=== PATIENT | male | born 2000 | race Hispanic/Latino ===

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

== ENCOUNTER 2022-09-20 12:27 | Emergency (ER) | payer OTHER ==
--- OUTSIDE RECORDS SUMMARY | 2022-09-20 12:31 | XMS REPORT | Continuity of Care Document ---
:2000 Author Organization [facility] t Address [address] [place] [address] Dr. Reza. [address] [place] [address] Care Team Providers Name Role Phone Elda Gabriel MD Attending Clinician MI LEE Attending Clinician Unavailable MI LEE Attending Clinician Unavailable 1, [facility] Attending Clinician Unavailable Mi Lee MD Attending Clinician Tanya Newby MD Attending Clinician [phone] Doctor Unassigned, [place] Attending Clinician Unavailable Only, [facility] Test Attending Clinician Unavailable Isaac Singer Attending Clinician ISAAC SALINAS Attending Clinician Unavailable Payers Payer Name Policy Type Policy Number Effective Date Expiration Date [facility] [id number] [address] [facility] MEDICAID 00:00:00 Problems Condition Condition Condition Status Onset Resolution Last Treating Co mments Source Name Details Category Date Date Treatment Clinician Date No known No known Disease Unive rs active active ity of problems problems [facility] Allergies, Adverse Reactions, Alerts Allergy Allergy Status Severity Reaction(s) Onset Inactive Treating Comm ents Source Name Type Date Date Clinician NO KNOWN Drug Active Univers ALLERGIE Class ity of S [facility] Social History Social Habit Start Date Stop Date Quantity Comments Source Exposure to Not sure [facility] SARS-CoV-2 (event) Medica l Branch Sex Assigned At [birth year] [place] [facility] 00:00:00 00:00:00 Smoking Status Start Date Stop Date Source Tobacco smoking consumption unknown [facility] Medications Ordered Filled Start Stop Current Ordering Indication Dosage Frequency Signature Comments Components Source Medication Medication Date Date Medication? Clinician (SIG) Name Name ibuprofen 800mg 800 mg, Uni vers (IBU) 10-05 Oral, ity of tablet 800 23:00: 22:24 ONCE, 1 [place] mg 00 :00 dose, [facility] 10/05/20 at Branch 1700, NAZANIN acetaminoph No 1000mg 1,000 mg, Univers en 10-05 Oral, ity of (TYLENOL) 23:00: 22:24 ONCE, 1 [place] :00 dose, [facility] 1,000 mg 10/05/[address] [place] [facility] h 1700, Routine cyclobenzap Yes [id number] 5mg Take 1 Univers rine 5 mg 1-14 tablet by ity o f tablet 00:00: mouth 3 [place] 00 (three) Medical times Branch daily as needed for Muscle Spasms. ibuprofen Yes [id number] 600mg Take 1 U nivers 600 mg 1-14 tablet by ity of tablet 00:00: mouth [place] 00 every 6 Medical (six) Branch hours as needed for Pain (scale 4-6). cyclobenzap Yes [id number] 5mg Take 1 Univers rine 5 mg 1-14 tablet by ity o f tablet 00:00: mouth 3 [place] 00 (three) Medical times Branch daily as needed for Muscle Spasms. ibuprofen Yes [id number] 600mg Take 1 U nivers 600 mg 1-14 tablet by ity of tablet 00:00: mouth [place] 00 every 6 Medical (six) Branch hours as needed for Pain (scale 4-6). cyclobenzap Yes [id number] 5mg Take 1 Univers rine 5 mg 1-14 tablet by ity o f tablet 00:00: mouth 3 [place] 00 (three) Medical times Branch daily as needed for Muscle Spasms. ibuprofen 2020- Yes [id number] 600mg Take 1 U nivers 600 mg 1-14 tablet by ity of tablet 00:00: mouth [place] 00 every 6 Medical (six) Branch hours as needed for Pain (scale 4-6). cyclobenzap Yes [id number] 5mg Take 1 Univers rine 5 mg 1-14 tablet by ity o f tablet 00:00: mouth 3 [place] 00 (three) Medical times Branch daily as needed for Muscle Spasms. ibuprofen 2020-0 Yes [id number] 600mg Take 1 U nivers 600 mg 1-14 tablet by ity of tablet 00:00: mouth [place] 00 every 6 Medical (six) Branch hours as needed for Pain (scale 4-6). cyclobenzap 2020-0 Yes [id number] 5mg Take 1 Univers rine 5 mg 1-14 tablet by ity o f tablet 00:00: mouth 3 [place] 00 (three) Medical times Branch daily as needed for Muscle Spasms. ibuprofen 2020-0 Yes [id number] 600mg Take 1 U nivers 600 mg 1-14 tablet by ity of tablet 00:00: mouth [place] 00 every 6 Medical (six) Branch hours as needed for Pain (scale 4-6). cyclobenzap 2020-0 Yes [id number] 5mg Take 1 Univers rine 5 mg 1-14 tablet by ity o f tablet 00:00: mouth 3 00 (three) Medical times Branch daily as needed for Muscle Spasms. ibuprofen 2020-0 Yes [id number] 600mg Take 1 U nivers 600 mg 1-14 tablet by ity of tablet 00:00: mouth [place] 00 every 6 Medical (six) Branch hours as needed for Pain (scale 4-6). cyclobenzap 2020-0 Yes [id number] 5mg Take 1 Univers rine 5 mg 1-14 tablet by ity o f tablet 00:00: mouth 3 00 (three) Medical times Branch daily as needed for Muscle Spasms. ibuprofen 2020-0 Yes [id number] 600mg Take 1 U nivers 600 mg 1-14 tablet by ity of tablet 00:00: mouth [place] 00 every 6 Medical (six) Branch hours as needed for Pain (scale 4-6). cyclobenzap 1-0 Yes [id number] 5mg Take 1 Univers rine 5 mg 1-14 tablet by ity o f tablet 00:00: mouth 3 [place] 00 (three) Medical times Branch daily as needed for Muscle Spasms. ibuprofen 2020-0 Yes [id number] 600mg Take 1 U nivers 600 mg 1-14 tablet by ity of tablet 00:00: mouth [place] 00 every 6 Medical (six) Branch hours as needed for Pain (scale 4-6). cyclobenzap Yes [id number] 5mg Take 1 Univers rine 5 mg 1-14 tablet by ity o f tablet 00:00: mouth 3 [place] 00 (three) Medical times Branch daily as needed for Muscle Spasms. ibuprofen Yes [id number] 600mg Take 1 U nivers 600 mg 1-14 tablet by ity of tablet 00:00: mouth [place] 00 every 6 Medical (six) Branch hours as needed for Pain (scale 4-6). cyclobenzap Yes [id number] 5mg Take 1 Univers rine 5 mg 1-14 tablet by ity o f tablet 00:00: mouth 3 [place] 00 (three) Medical times Branch daily as needed for Muscle Spasms. ibuprofen Yes [id number] 600mg Take 1 U nivers 600 mg 1-14 tablet by ity of tablet 00:00: mouth [place] 00 every 6 Medical (six) Branch hours as needed for Pain (scale 4-6). Vital Signs Vital Name Observation Time Observation Value Comments Source Heart rate 2020-10-05 21:03:00 97 /min [facility] Body temperature 2020-10-05 21:03:00 36.72 Daphne [facility] Respiratory rate 2020-10-05 21:03:00 20 /min [facility] Body height 2020-10-05 21:03:00 175.3 cm [facility] Body weight 2020-10-05 21:03:00 48.535 kg [facility] BMI 2020-10-05 21:03:00 15.80 kg/m2 [facility] Systolic blood 2020-10-05 21:03:00 142 mm[Hg] [facility] sity of pressure [facility] Diastolic blood 2020-10-05 21:03:00 82 mm[Hg] [facility] Procedures Procedure Date / Time Performing Clinician Source Performed SLEEP LAB RESULTS 2021-02-02 05:01:00 Tanya Newby [facility] REFERRAL- REQUEST/RESPONSE 2021-01-25 05:01:00 Doctor Unassigned , [facility] [place] [facility] SLEEP STUDY DATA REPORT 2021-01-05 05:01:00 [facility] [place] [facility] PATIENT FINANCIAL 2020-12-11 20:22:35 [facility] POLICY [place] [facility] NO SHOW OR MISSED 2020-12-11 20:22:13 Doctor Edouard, [facility] APPOINTMENT POLICY [place] [facility] h ACKNOWLEDGEMENT NOTICE OF PRIVACY 2020-12-11 20:21:55 Doctor Unassigned, [facility] PRACTICES [place] [facility] CONSENT/REFUSAL FOR 2020-12-11 20:21:29 Doctor Unassmalorie, Unive [facility] DIAGNOSIS AND TREATMENT [place] [facility] ASSIGNMENT OF BENEFITS 2020-12-11 20:21:12 Doctor Unassigned, Un [facility] [place] [facility] Encounters Start End Encounter Admission Attending Care Care Encounter Source Date/Time Date/Time Type Type Clinicians Facility Department ID 2021-06-21 2021-06-21 Telephone Nery [place]apaco [facility] 6410 1.2.840.114 [id number] [place] 00:00:00 00:00:[address] [id number] [facility] [id number] 2021-02-02 2021-02-02 Outpatient R MI LEE [facility] [id number] [facility] 19:30:00 19:30:00 MI LEE [facility] 2021-02-02 2021-02-02 [employer] Executive 1, [facility] Sleep Lab Bed [facility] 1. 2.840.114 [id number] [facility] 13:18:43 15:48:43 Visit Mi Lee [id number]. 10 ity of [place] [id number] [facility] [id number] [facility] nadia 193 Branch 2021-02-02 2021-02-02 Cesilia Newby [facility] 1.2.840.114 [id number] [facility] 00:00:00 00:00:00 Only Tanya PRIMARY [id number] it y of [facility] [id number] [facility] as [facility] [id number] dical 152 Branch 2021-01-31 2021-01-31 Outpatient R [facility] [id number] Univers 14:30:00 14:30:00 ity of [facility] 2021-01-25 2021-01-25 Orders Doctor SIRNIVAS 1.2.840.114 [id number] Univers 00:00:00 00:00:00 Only Unassigned, MARLON [id number] ity of [place] [facility] [id number] [place] as [id number] [address] 2021-01-05 2021-01-05 Outpatient R TAMRA, STRAHIL [facility] [id number] Univers 19:30:00 19:30:00 MAAMENASMOON, STRAHIL ity [facility] 2021-01-05 2021-01-05 [employer] 1, [facility] Sleep Lab Bed [facility] 1. 2.840.114 [id number] Univers 13:50:03 16:20:03 Visit Mi Lee [id number]. 10 ity [facility] [id number] [facility] [id number] [facility] [address] [place] 2021-01-05 2021-01-05 Orders Doctor SRINIVAS 1.2.840.114 [id number] Univers 00:00:00 00:00:00 Only Unassigned, MARLON [id number] ity of [place] [facility] [id number] [place] as [id number] [address] 2020-12-16 2020-12-16 Outpatient R TAMRA, STRAHIL [facility] [id number] Univers 19:30:00 19:30:00 MAAMENASOV, STRAHIL ity [facility] 2020-12-13 2020-12-13 Outpatient R TAMRA STRAHIL [facility] [id number] Univers 19:30:00 19:30:00 MAAMENASOV, STRAHIL ity [facility] 2020-12-11 2020-12-11 Laboratory Only, Adc Test [facility] 1.2.840. 114 [id number] Univers 15:22:29 15:37:29 Only Mi Lee [place] 350.1.13. 10 ity of [place] [id number] [facility] [id number] [facility] 353 Branch 2020-12-11 2020-12-11 Outpatient R MI LEE [facility] [id number] Univers 15:30:00 15:30:[address] [facility] [place] 2020-12-11 2020-12-11 Orders Doctor SRINIVAS 1.2.840.114 [id number] Univers 00:00:00 00:00:00 Only Unassigned, MARLON [id number] ity of [place] [facility] [id number] Vaibhav as [id number] [facility] 009 Branch 2020-12-11 2020-12-11 Letter Doctor SRINIVAS 1.2.840.114 [id number] Univers 00:00:00 00:00:00 (Out) Unassigned, MARLON [id number] ity of [place] [facility] [id number] Vaibhav as [id number] [facility] 044 Branch 2020-10-05 2020-10-05 Emergency [facility] 1.2.840.114 [id number] Univers 15:10:00 17:01:00 Isaac Patiño [id number] ity of [place] [id number] [facility] [id number] [facility] 084 Branch 2020-10-05 2020-10-05 Emergency [facility] ERT [id number] Univers 15:10:00 15:10:00 ISAAC ity [facility] Results This patient has no known results.
[2022-09-20] MEDS ORDERED: LIDOCAINE 1% MPF 5 ML VIAL ONE (14:19)
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
[2022-09-20 16:09] VITALS: BP 156/95; TEMP 98.1; O2SAT 100
== END 2022-09-20 16:03 | disposition home or self-care (01) ==
LOC: ER 12:27
PROC: 0JQH0ZZ Repair Left Lower Arm Subcutaneous Tissue and Fascia, Open Approach (ICD-10-PCS; principal; 2022-09-20)
DX: S51.812A Laceration without foreign body of left forearm, initial encounter (principal)
CPT/HCPCS: 99281; 12001; J2001

== ENCOUNTER 2023-03-12 08:11 | Emergency (ER) | payer OTHER ==
--- OUTSIDE RECORDS SUMMARY | 2023-03-12 08:14 | XMS REPORT | Continuity of Care Document ---
:2000 Author Organization [facility] t Address [address] [facility] [address] [place] [address] Care Team Providers Name Role Phone Elda Gabriel MD Attending Clinician MI LEE Attending Clinician Unavailable MI LEE Attending Clinician Unavailable 1, [facility] Attending Clinician Unavailable Mi Lee MD Attending Clinician Tanya Newby MD Attending Clinician Doctor Unassigned, [place] Attending Clinician Unavailable Only, [facility] Test Attending Clinician Unavailable Isaac Singer Attending Clinician ISAAC SALINAS Attending Clinician Unavailable Payers Payer Name Policy Type Policy Number Effective Date Expiration Date Formerly [facility], [facility] [id number] 2014 [facility] MEDICAID 00:00:00 Problems Condition Condition Condition Status Onset Resolution Last Treating Co mments Source Name Details Category Date Date Treatment Clinician Date No known No known Disease Unive rs active active ity of problems problems [facility] Allergies, Adverse Reactions, Alerts Allergy Allergy Status Severity Reaction(s) Onset Inactive Treating Comm ents Source Name Type Date Date Clinician NO KNOWN Drug Active Univers ALLERGIE Class ity of S [facility] Social History Social Habit Start Date Stop Date Quantity Comments Source Exposure to Not sure [facility] SARS-CoV-2 (event) Medica l Branch Sex Assigned At [birth year] [facility] 00:00:00 00:00:00 Smoking Status Start Date Stop Date Source Tobacco smoking consumption unknown [facility] Medications Ordered Filled Start Stop Current Ordering Indication Dosage Frequency Signature Comments Components Source Medication Medication Date Date Medication? Clinician (SIG) Name Name ibuprofen 800mg 800 mg, Uni vers (IBU) 10-05 Oral, ity of tablet 800 23:00: 22:24 ONCE, 1 [place] as mg 00 :00 dose, [facility] Medical 10/05/20 at Branch 1700, NAZANIN acetaminoph No 1000mg 1,000 mg, Univers en 10-05 Oral, ity of (TYLENOL) 23:00: 22:24 ONCE, [place]00 dose, [facility] 1,000 mg 10/05/20 at [facility] h 1700, Routine cyclobenzap Yes [id number] 5mg Take 1 Univers rine 5 mg 1-14 tablet by ity o f tablet 00:00: mouth 3 [place] 00 (three) Medical times Branch daily as needed for Muscle Spasms. ibuprofen Yes [id number] 600mg Take 1 U nivers 600 mg 1-14 tablet by ity of tablet 00:00: mouth [place] 00 every 6 Medical (six) Branch hours as needed for Pain (scale 4-6). cyclobenzap Yes [id number] 5mg Take 1 Univers rine 5 mg 1-14 tablet by ity o f tablet 00:00: mouth 3 [place] 00 (three) Medical times Branch daily as needed for Muscle Spasms. ibuprofen Yes [id number] 600mg Take 1 U nivers 600 mg 1-14 tablet by ity of tablet 00:00: mouth [place] 00 every 6 Medical (six) Branch hours as needed for Pain (scale 4-6). cyclobenzap Yes [id number] 5mg Take 1 Univers rine 5 mg 1-14 tablet by ity o f tablet 00:00: mouth 3 [place] 00 (three) Medical times Branch daily as needed for Muscle Spasms. ibuprofen 2020- Yes [id number] 600mg Take 1 U nivers 600 mg 1-14 tablet by ity of tablet 00:00: mouth [place] 00 every 6 Medical (six) Branch hours as needed for Pain (scale 4-6). cyclobenzap Yes [id number] 5mg Take 1 Univers rine 5 mg 1-14 tablet by ity o f tablet 00:00: mouth 3 [place] 00 (three) Medical times Branch daily as needed for Muscle Spasms. ibuprofen 2020-0 Yes [id number] 600mg Take 1 U nivers 600 mg 1-14 tablet by ity of tablet 00:00: mouth [place] 00 every 6 Medical (six) Branch hours as needed for Pain (scale 4-6). cyclobenzap 2020-0 Yes [id number] 5mg Take 1 Univers rine 5 mg 1-14 tablet by ity o f tablet 00:00: mouth 3 [place] 00 (three) Medical times Branch daily as needed for Muscle Spasms. ibuprofen 2020-0 Yes [id number] 600mg Take 1 U nivers 600 mg 1-14 tablet by ity of tablet 00:00: mouth [place] 00 every 6 Medical (six) Branch hours as needed for Pain (scale 4-6). cyclobenzap 2020-0 Yes [id number] 5mg Take 1 Univers rine 5 mg 1-14 tablet by ity o f tablet 00:00: mouth 3 00 (three) Medical times Branch daily as needed for Muscle Spasms. ibuprofen 2020-0 Yes [id number] 600mg Take 1 U nivers 600 mg 1-14 tablet by ity of tablet 00:00: mouth [place] 00 every 6 Medical (six) Branch hours as needed for Pain (scale 4-6). cyclobenzap 2020-0 Yes [id number] 5mg Take 1 Univers rine 5 mg 1-14 tablet by ity o f tablet 00:00: mouth 3 00 (three) Medical times Branch daily as needed for Muscle Spasms. ibuprofen 2020-0 Yes [id number] 600mg Take 1 U nivers 600 mg 1-14 tablet by ity of tablet 00:00: mouth [place] 00 every 6 Medical (six) Branch hours as needed for Pain (scale 4-6). cyclobenzap 1-0 Yes [id number] 5mg Take 1 Univers rine 5 mg 1-14 tablet by ity o f tablet 00:00: mouth 3 [place] 00 (three) Medical times Branch daily as needed for Muscle Spasms. ibuprofen 2020-0 Yes [id number] 600mg Take 1 U nivers 600 mg 1-14 tablet by ity of tablet 00:00: mouth [place] 00 every 6 Medical (six) Branch hours as needed for Pain (scale 4-6). cyclobenzap Yes [id number] 5mg Take 1 Univers rine 5 mg 1-14 tablet by ity o f tablet 00:00: mouth 3 [place] 00 (three) Medical times Branch daily as needed for Muscle Spasms. ibuprofen Yes [id number] 600mg Take 1 U nivers 600 mg 1-14 tablet by ity of tablet 00:00: mouth [place] 00 every 6 Medical (six) Branch hours as needed for Pain (scale 4-6). cyclobenzap Yes [id number] 5mg Take 1 Univers rine 5 mg 1-14 tablet by ity o f tablet 00:00: mouth 3 [place] 00 (three) Medical times Branch daily as needed for Muscle Spasms. ibuprofen Yes [id number] 600mg Take 1 U nivers 600 mg 1-14 tablet by ity of tablet 00:00: mouth [place] 00 every 6 Medical (six) Branch hours as needed for Pain (scale 4-6). Vital Signs Vital Name Observation Time Observation Value Comments Source Heart rate 2020-10-05 21:03:00 97 /min [facility] acute hospital Body temperature 2020-10-05 21:03:00 36.72 Daphne [facility] Respiratory rate 2020-10-05 21:03:00 20 /min [facility] Body height 2020-10-05 21:03:00 175.3 cm General acute hospital Body weight 2020-10-05 21:03:00 48.535 kg General acute hospital BMI 2020-10-05 21:03:00 15.80 kg/m2 General acute hospital Systolic blood 2020-10-05 21:03:00 142 mm[Hg] [facility] Diastolic blood 2020-10-05 21:03:00 82 mm[Hg] [facility] Procedures Procedure Date / Time Performing Clinician Source Performed SLEEP LAB RESULTS 2021-02-02 05:01:00 Tanya Newby [facility] REFERRAL- REQUEST/RESPONSE 2021-01-25 05:01:00 Doctor Unassigned , [facility] [place] [facility] SLEEP STUDY DATA REPORT 2021-01-05 05:01:00 [facility] [place] [facility] PATIENT FINANCIAL 2020-12-11 20:22:35 [facility], [facility] POLICY [place] [facility] NO SHOW OR MISSED 2020-12-11 20:22:13 Doctor Edouard, [facility] APPOINTMENT POLICY [place] [facility] h ACKNOWLEDGEMENT NOTICE OF PRIVACY 2020-12-11 20:21:55 Doctor Unassigned, [facility] PRACTICES [place] [facility] CONSENT/REFUSAL FOR 2020-12-11 20:21:29 Doctor Unassmalorie, Unive [facility] DIAGNOSIS AND TREATMENT [place] [facility] ASSIGNMENT OF BENEFITS 2020-12-11 20:21:12 Doctor Unassigned, Un [facility] [place] [facility] Encounters Start End Encounter Admission Attending Care Care Encounter Source Date/Time Date/Time Type Type Clinicians Facility Department ID 2021-06-21 2021-06-21 Telephone Nery [place] [facility] [address] [id number] [id number] [place] 00:00:00 00:00:[address] [id number] [facility] [id number] 2021-02-02 2021-02-02 Outpatient R MI LEE [facility] [id number] [facility] [place] 19:30:00 19:30:00 MI LEE [facility] 2021-02-02 2021-02-02 [place] 1, [employer] Sleep Lab Bed [facility] 1. [id number] [id number] [facility] 13:18:43 15:48:43 Visit Mi Lee 350.1.13. 10 ity of [place] [id number] [facility] [id number] [facility] nadia 193 Branch 2021-02-02 2021-02-02 Cesilia Newby [facility] [id number] [facility] [place] 00:00:00 00:00:00 Only Tanya PRIMARY [id number] it y of [facility] [id number] [place] as PAVILLION [id number] Ut dical 152 Branch 2021-01-31 2021-01-31 Outpatient R [facility] [id number] Univers 14:30:00 14:30:00 ity of [facility] 2021-01-25 2021-01-25 Orders Doctor SRINIVAS 1.2.840.114 [id number] Univers 00:00:00 00:00:00 Only Unassigned, MARLON [id number] ity of [place] [facility] [id number] [place] as [id number] [address] 2021-01-05 2021-01-05 Outpatient R TAMRA, STRAHIL [facility] [id number] Univers 19:30:00 19:30:00 MAAMENASMOON, STRAHIL ity [facility] 2021-01-05 2021-01-05 [place] 1, [employer] Sleep Lab Bed [facility] 1. 2.840.114 [id number] Univers 13:50:03 16:20:03 Visit Mi Lee 350.1.13. 10 ity [facility] [id number] [facility] [id number] [facility] [address] [place] 2021-01-05 2021-01-05 Orders Doctor SRINIVAS 1.2.840.114 [id number] Univers 00:00:00 00:00:00 Only Unassigned, MARLON [id number] ity of [place] [facility] [id number] [place] as [id number] [address] 2020-12-16 2020-12-16 Outpatient R TAMRA, STRAHIL [facility] [id number] Univers 19:30:00 19:30:00 MAAMENASOV, STRAHIL ity [facility] 2020-12-13 2020-12-13 Outpatient R TAMRA STRAHIL [facility] [id number] Univers 19:30:00 19:30:00 MAAMENASOV, STRAHIL ity [facility] 2020-12-11 2020-12-11 Laboratory Only, Adc Test [facility] 1.2.840. 114 [id number] Univers 15:22:29 15:37:29 Only Mi Lee [place] 350.1.13. 10 ity of [place] [id number] [facility] [place] [id number] [facility] 353 Branch 2020-12-11 2020-12-11 Outpatient R MI LEE [facility] [id number] Univers 15:30:00 15:30:00 [facility] 2020-12-11 2020-12-11 Orders Doctor SRINIVAS 1.2.840.114 [id number] Univers 00:00:00 00:00:00 Only Unassigned, MARLON [id number] ity of [place] [facility] [id number] Vaibhav as [phone] [facility] 009 Branch 2020-12-11 2020-12-11 Letter Doctor SRINIVAS 1.2.840.114 [id number] Univers 00:00:00 00:00:00 (Out) Unassigned, MARLON [id number] ity of [place] [facility] [id number] Vaibhav as [id number] [facility] 044 Branch 2020-10-05 2020-10-05 Emergency [facility] 1.2.840.114 [id number] Univers 15:10:00 17:01:00 Isaac Patiño [id number] ity of [place] [id number] [facility] [phone] [facility] 084 Branch 2020-10-05 2020-10-05 Emergency X [facility] ERT [id number] Univers 15:10:00 15:10:00 ISAAC ity [facility] Results This patient has no known results.
--- NOTE | 2023-03-12 08:43 | ER ---
Nurse's Notes [facility] Name: Eloy Ramos Age: 22 yrs Sex: Male : 2000 Arrival Date: 03/12/2023 Time: 08:11 Bed 10 Private MD: Diagnosis: Deep skin avulsion to left forearm Presentation: 03/12 08:30 Chief complaint: Patient states: Scraped L forearm on a nail last night while moving furniture, superficial laceration to L forearm, no bleeding noted, states, " My mom said I need a tetanus shot.". Coronavirus screen: Vaccine status: Patient reports receiving the 2nd dose of the covid vaccine. Ebola Screen: No symptoms or risks identified at this time. Complicating Factors: There are no complicating factors for this patient. Initial Sepsis Screen: Does the patient meet any 2 criteria? No. Patient's initial sepsis screen is negative. Does the patient have a suspected source of infection? No. Patient's initial sepsis screen is negative. Risk Assessment: Do you want to hurt yourself or someone else? Patient reports no desire to harm self or others. Onset of symptoms was March 12, 2023. 08:30 Method Of Arrival: Ambulatory 08:30 Acuity: KULDEEP 4 ph Triage Assessment: 09:07 General: Appears in no apparent distress. Behavior is calm, cooperative. mb9 Historical: - Allergies: 08:32 NKA; ph - PMHx: 08:32 ADD/ADHD; ph - Immunization history:: Adult Immunizations unknown. - Social history:: Smoking status: Reported history of juuling and/or vaping. Screenin:06 [facility] ED Fall Risk Assessment (Adult) History of falling in the last 3 months, mb9 including since admission No falls in past 3 months (0 pts) Confusion or Disorientation No (0 pts) Intoxicated or Sedated No (0 pts) Impaired Gait No (0 pts) Mobility Assist Device Used No (0 pt) Altered Elimination No (0 pt) Score/Fall Risk Level 0 - 2 = Low Risk Oriented to surroundings, Maintained a safe environment, Educated pt \\T\\ family on fall prevention, incl call for assistance when getting out of bed. Abuse screen: Denies threats or abuse. Nutritional screening: No deficits noted. Tuberculosis screening: No symptoms or risk factors identified. Assessment: 09:05 Pain: Denies pain. Neuro: Level of Consciousness is awake, alert, obeys commands, mb9 Oriented to person, place, time, situation, Appropriate for age. Respiratory: Airway is patent Respiratory effort is even, unlabored, Respiratory pattern is regular, symmetrical. Derm: Skin is pink, warm \\T\\ dry. Musculoskeletal: Range of motion: intact in all extremities. Injury Description: Laceration sustained to dorsal aspect of left forearm is clean, superficial, 2.6 to 7.5 cm long, not bleeding. Vital Signs: 08:30 BP 132 / 78; Pulse 93; Resp 18; Temp 97.2; Pulse Ox 98% on R/A; Weight 131.54 kg; ph Height 5 ft. 10 in. ; 08:30 Body Mass Index 41.61 (131.54 kg, 177.8 cm) ph ED Course: 08:12 Patient arrived in ED. rg4 08:30 Dyana Szymanski RN is Primary Nurse. ph 08:31 [facility] Vazquez [facility]-C [facility] snw 08:31 Hiro Humphreys MD is Attending Physician. snw 08:32 Triage completed. ph 08:32 Arm band placed on Patient placed in an exam room. ph 09:06 No provider procedures requiring assistance completed. Patient did not have IV access mb9 during this emergency room visit. Administered Medications: 08:55 Drug: Mupirocin Topical Ointment 2 % 1 application Route: Topical; Site: affected area; mb9 09:11 Drug: Boostrix Tdap IM 0.5 ml {Note: [facility], A143A, ANJALI 2023.} Route: IM; mb9 Site: right deltoid; 09:12 Follow up: Response: No adverse reaction mb9 Medication: 09:06 VIS not applicable for this client. mb9 Outcome: 08:43 Discharge ordered by . snw 09:12 Discharged to home ambulatory. mb9 09:12 Condition: stable 09:12 Discharge instructions given to patient, Instructed on discharge instructions, follow up and referral plans. Demonstrated understanding of instructions, follow-up care. 09:12 Patient left the ED. mb9 Signatures: Yandy Vazquez FNP-C LEAD OPERATOR-Dyana Aguayo RN RN Radha Topete 4 Breneman, Jen, RN RN mb9
--- NOTE | 2023-03-12 08:43 | EDPHYS ---
Physician Documentation [facility] Name: Eloy Ramos Age: 22 yrs Sex: Male : 2000 Arrival Date: 03/12/2023 Time: 08:11 Bed 10 Private MD: ED Physician Hiro Humphreys HPI: 03/12 08:48 This 22 yrs old Male presents to ER via Ambulatory with complaints of snw Laceration To Arm. 08:48 The patient has a laceration related to: working, with wood, occurred at work, and snw freida nail. The laceration(s) is(are) located on the dorsal aspect of left forearm. Onset: The symptoms/episode began/occurred suddenly, yesterday. Associated signs and symptoms: The patient has no apparent associated signs or symptoms. The patient has not experienced similar symptoms in the past. The patient has not recently seen a physician. Historical: - Allergies: 08:32 NKA; ph - PMHx: 08:32 ADD/ADHD; ph - Immunization history:: Adult Immunizations unknown. - Social history:: Smoking status: Reported history of juuling and/or vaping. ROS: 08:44 Constitutional: Negative for fever, chills, and weight loss, Eyes: Negative for injury, snw pain, redness, and discharge, ENT: Negative for injury, pain, and discharge, Neck: Negative for injury, pain, and swelling, Cardiovascular: Negative for chest pain, palpitations, and edema, Respiratory: Negative for shortness of breath, cough, wheezing, and pleuritic chest pain, Abdomen/GI: Negative for abdominal pain, nausea, vomiting, diarrhea, and constipation, Back: Negative for injury and pain, : Negative for injury, bleeding, discharge, and swelling, MS/Extremity: Negative for injury and deformity, Neuro: Negative for headache, weakness, numbness, tingling, and seizure, Psych: Negative for depression, anxiety, suicide ideation, homicidal ideation, and hallucinations. 08:44 Skin: Positive for laceration(s), of the dorsal aspect of left forearm. Exam: 08:44 Constitutional: This is a well developed, well nourished patient who is awake, alert, snw and in no acute distress. Head/Face: Normocephalic, atraumatic. Eyes: Pupils equal round and reactive to light, extra-ocular motions intact. Lids and lashes normal. Conjunctiva and sclera are non-icteric and not injected. Cornea within normal limits. Periorbital areas with no swelling, redness, or edema. Neck: Trachea midline, no thyromegaly or masses palpated, and no cervical lymphadenopathy. Supple, full range of motion without nuchal rigidity, or vertebral point tenderness. No Meningismus. Chest/axilla: Normal chest wall appearance and motion. Nontender with no deformity. No lesions are appreciated. Cardiovascular: Regular rate and rhythm with a normal S1 and S2. No gallops, murmurs, or rubs. Normal PMI, no JVD. No pulse deficits. Respiratory: Lungs have equal breath sounds bilaterally, clear to auscultation and percussion. No rales, rhonchi or wheezes noted. No increased work of breathing, no retractions or nasal flaring. Abdomen/GI: Soft, non-tender, with normal bowel sounds. No distension or tympany. No guarding or rebound. No evidence of tenderness throughout. Back: No spinal tenderness. No costovertebral tenderness. Full range of motion. MS/ Extremity: Pulses equal, no cyanosis. Neurovascular intact. Full, normal range of motion. Neuro: Awake and alert, GCS 15, oriented to person, place, time, and situation. Cranial nerves II-XII grossly intact. Motor strength 5/5 in all extremities. Sensory grossly intact. Cerebellar exam normal. Normal gait. Psych: Awake, alert, with orientation to person, place and time. Behavior, mood, and affect are within normal limits. 08:44 Skin: Appearance: normal except for affected area, injury, avulsion(s), A moderate sized of the dorsal aspect of left forearm. Vital Signs: 08:30 BP 132 / 78; Pulse 93; Resp 18; Temp 97.2; Pulse Ox 98% on R/A; Weight 131.54 kg; ph Height 5 ft. 10 in. ; 08:30 Body Mass Index 41.61 (131.54 kg, 177.8 cm) ph MDM: 08:39 Patient medically screened. alan 08:47 Differential diagnosis: superficial laceration. Data reviewed: vital signs, nurses snw notes. I considered the following discharge prescriptions or medication management in the emergency department Medications were administered in the Emergency Department. See NOV. Counseling: I had a detailed discussion with the patient and/or guardian regarding: the historical points, exam findings, and any diagnostic results supporting the discharge/admit diagnosis, the need for outpatient follow up, for definitive care, to return to the emergency department if symptoms worsen or persist or if there are any questions or concerns that arise at home. Special discussion: I discussed in detail with the patient the higher chance of wound infection based on his presenting history. Based on the history and exam findings, there is no indication for further emergent testing or inpatient evaluation. I discussed with the patient/guardian the need to see the primary care provider for further evaluation of the symptoms. 03/12 08:44 Order name: Wound Care: Hibiclens, mupirocin, nonstick gauze and rayray; Complete Time: snw 09:04 03/12 08:44 Order name: Rayray Wrap; Complete Time: 09:04 snw Administered Medications: 08:55 Drug: Mupirocin Topical Ointment 2 % 1 application Route: Topical; Site: affected area; mb9 09:11 Drug: Boostrix Tdap IM 0.5 ml {Note: [place], [id number], ANJALI 2023.} Route: IM; mb9 Site: right deltoid; 09:12 Follow up: Response: No adverse reaction mb9 Disposition Summary: 03/12/23 08:43 Discharge Ordered Location: Home snw Condition: Stable snw Diagnosis - Deep skin avulsion to left forearm snw Followup: snw - With: Emergency Department - When: As needed - Reason: Worsening of condition Followup: snw - With: Private Physician - When: 2 - 3 days - Reason: Recheck today's complaints, Continuance of care, Re-evaluation by your physician Discharge Instructions: - Discharge Summary Sheet sp3 Forms: - Medication Reconciliation Form snw - Thank You Letter snw - Antibiotic Education snw - Prescription Opioid Use snw - Work release form sp3 Signatures: Hiro Humphreys MD MD cha Waters, Shelly, ADRIEL-C FOUNTAIN CLERK-Dyana Aguayo RN RN Lolly Correa RN RN mb9
[2023-03-12] MEDS ORDERED: MUPIROCIN 2% OINT 22GM TUBE TOP ONE (08:58)
[2023-03-12] MEDS ORDERED: TDAP (DIPHTH,PERTUSS(ACELL),TET VAC) 0.5 ML VIAL IMVAC ONE (08:58)
[2023-03-12 09:17] VITALS: BP 132/78; TEMP 97.2; O2SAT 98
== END 2023-03-12 09:12 | disposition home or self-care (01) ==
LOC: ER 08:11
DX: S51.802A Unspecified open wound of left forearm, initial encounter (principal)